=== PATIENT | female | born 1955 | race Caucasian/White ===

== ENCOUNTER 2024-11-02 06:32 | Day surgery (SDC) | payer MEDICARE, OTHER, SELFPAY | END 2024-11-02 11:47 | disposition home or self-care (01) | LOC: GI 06:32 | PROVIDERS: ATTENDING PHYSICIAN Internal Medicine Gastroenterology | DX: K52.9 Noninfective gastroenteritis and colitis, unspecified (principal); K63.3 Ulcer of intestine; K91.850 Pouchitis; Z90.49 Acquired absence of other specified parts of digestive tract | CPT/HCPCS: 44386; 88305 ==

== ENCOUNTER → 2025-02-13 08:54 | Outpatient (REF) | payer MEDICARE, OTHER, SELFPAY | LOC: MRI 3T 08:54 | PROVIDERS: ATTENDING PHYSICIAN Internal Medicine; FAMILY PHYSICIAN Nurse Practitioner Family | DX: K52.9 Noninfective gastroenteritis and colitis, unspecified (principal) | CPT/HCPCS: 72197; 74183; A9575 ==

== ENCOUNTER 2025-04-04 10:49 | Inpatient (IN) | payer MEDICARE, OTHER, SELFPAY ==
[2025-04-04] VITALS (25 sets, daily range): BP systolic 83–121; BP diastolic 43–72; BMI 19.4; BMI 18.8
--- NOTE | 2025-04-04 05:03 | ED.GENMED ---
History of Present Illness
<Minnie Buck PA-C - Last Filed: 04/06/25 20:04>
General
Chief Complaint: Abdominal Pain
Source: patient
Exam Limitations: none
Time Seen by Provider: 04/04/25 04:41
Nursing documentation reviewed up to this point in time: agreed with
History of Present Illness
History of Present Illness:
Note:
CHIEF COMPLAINT(S)
Abdominal pain and nausea.
HISTORY OF PRESENT ILLNESS
The patient is a 69-year-old female with a history of Crohns disease, previously diagnosed as ulcerative colitis, presents today with abdominal pain and back pain. She has a hx of recurrent episodes of partial bowel obstruction. She reports that
symptoms of partial obstruction are managed conservatively at home. However she has required hospitalization reportedly in the past. Symptoms began yesterday around 5:30 PM with nausea, back pain, and abdominal pain. The patient usually
self-manages by inducing emesis; however, she was unable to vomit this time. The abdominal pain is concentrated under the rib cage, radiating to the back, and worsens when lying flat, reaching a pain level of eight or nine on a scale of ten. The
back pain is particularly intense in the middle of the back. She reports that sometimes the pain will radiate lower as well. She also mentioned a recent MRI and is in contact with Dr. Salas at [facility] and Dr. Camejo at [facility] for ongoing
management of her Crohn's disease. 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 Pain is typically worsened with eating, but there are no accompanying fevers, rectal
bleeding, or recent sick contacts.
ADDITIONAL HISTORY OBTAINED FROM SOURCES OTHER THAN THE PATIENT
Per the patient, these symptoms correlate with past bowel obstructions. She communicated with Dr. Salas and Dr. Camejo
CHRONIC MEDICAL CONDITIONS SIGNIFICANTLY AFFECTING CARE
The patient has a history of Crohns disease.
PHYSICAL EXAM
- Nursing notes reviewed and vital signs reviewed.
General: Patient is well appearing and in no acute distress; non-toxic
Skin: Warm and dry, no rashes or lesions
Head: Normocephalic, atraumatic
Eyes: Sclera non-icteric. EOMs intact.
Cardiac: Regular rate and rhythm, no murmurs
Peripheral Vascular: No lower extremity swelling or edema
Pulm: Normal respiratory effort, no wheezes, rales, rhonchi
Abdomen: Diffuse uppper abdominal tenderness to palpation
Neuro: CN II-XII intact, no focal neurologic deficits.
Psychiatric: Appropriate mood and affect.
PROBLEM LIST
Acute Problems:
- Abdominal pain
- Nausea
Chronic Problems:
- Crohns disease
PLAN
The plan includes administering intravenous pain management and anti-emetics. A computed tomography scan will be performed to assess for bowel obstruction and evaluate the gallbladder for potential acute cholecystitis. Laboratory tests will be
obtained. Coordination with the patient�s existing care network for continuity and appropriate management will be ensured.
DIFFERENTIAL DIAGNOSIS
The Differential Diagnosis includes, in no particular order and is not limited to:
1. Small bowel obstruction
2. Acute cholecystitis
3. Gallstones
4. Adhesive disease from prior surgery
5. Pancreatitis
6. Peptic ulcer disease
7. Gastroesophageal reflux disease
8. Biliary dyskinesia
9. Gastritis
10. Kidney stones
CHART REVIEW
reviewed GI office note from 11/02/24, patient seen for update for her previously known UC, she had a MRI performed which showed differential between chronic pouchitis versus prepouch ileitis caused by pouchitis versus evolution of crohn's disease,
she claims her symptoms are baseline for over 10 years and she does not want to take any new medication including abx of steroids versus new biologics at this point
ultrasound 03/11/23 gallbladder is filled with numerous stones with variable wall thickening
MDM/DISPOSITION
CT scan shows mild thickening of the gallbladder wall as well as multiple stones. Clinical picture concerning for acute cholecystitis. Will obtain ultrasound for further evaluation.
7:00 am--case signed out to Liliya MCNEIL pending ultrasound
Past History
<Minnie Buck PA-C - Last Filed: 04/06/25 20:04>
Past History
ED Past Medical History: None
ED Past Surgical History: Other (J-pouch)
Social History
Tobacco: Non-smoker
Alcohol: Occasional
Drug: None
Personal:
Living: with family
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
Family History
Family History: Other (Reviewed and non-contributory)
Review of Systems
<Minnie Buck PA-C - Last Filed: 04/06/25 20:04>
Review of Systems
All Other Systems: ROS reviewed and negative except as documented in HPI and ROS
<Petra Garcia MD - Last Filed: 04/04/25 12:47>
Review of Systems
Constitutional: Reports no symptoms
EENT: Reports no symptoms
Respiratory: Reports no symptoms
Cardiac: Reports no symptoms
ABD/GI: Reports abdominal pain
: Reports no symptoms
Musculoskeletal: Reports no symptoms
Skin: Reports no symptoms
Neurological: Reports no symptoms
Endocrine: Reports no symptoms
Hematologic/Lymphatic: Reports no symptoms
Psychiatric: Reports no symptoms
Phy Exam
<Petra Garcia MD - Last Filed: 04/04/25 12:47>
Physical Exam
Physical Exam:
Patient appears nontoxic. Lungs are clear. Heart sounds regular. Abdomen is soft with mild right upper quadrant tenderness. No rebound or guarding. No pulsatile mass no edema in extremities. Negative Homans' sign. Neuroexam is nonfocal.
Patient is interactive and cooperative
Course
<Minnie Buck PA-C - Last Filed: 04/06/25 20:04>
Orders/Labs/Results
Orders:
Orders
04/04/25 04:40
IV Insert/Care/Rem.- Treatment PRN
04/04/25 04:56
0.9% Sodium Chloride 500 ml [Nss] 500 ml IV BOLUS
HYDROmorphone [Dilaudid] 0.5 mg IV NOW STA
04/04/25 04:57
CT Abd/pelvis W Iv Cont Urgent
Comment:
Reason For Exam: diffuse abdominal pain
04/04/25 04:58
Ondansetron Injectable [Zofran] 4 mg IV NOW STA
04/04/25 05:03
Complete Blood Count/With Diff Urgent
Comprehensive Metabolic Panel Urgent
Lipase Urgent
04/04/25 06:21
US Abdomen Limited Urgent
Comment:
Reason For Exam: RUQ Pain known stones
04/04/25 07:26
Urinalysis Reflex To Culture Urgent
Date Specimen was Collected: 04/04/25
Time Specimen was Collected: 04:40
Urine Microscopic Reflex Cult Urgent
04/04/25 08:47
0.9% Sodium Chloride 1000 ml [Nss] 1,000 ml IV BOLUS
04/04/25 10:18
Admit/Transfer Patient As Directed
Co-Sign Provider:
Level of Care: Inpatient admission
Assign to:: Medical/Surgical
Physician / Group: Hospitalists
Diagnosis: Chron's Disease with Cholelithiasis
Patient Condition: Good
Reason for Hospitalization: Abdominal pain with nausea
Expected length of stay greater than two midnights?: Yes
ELOS- Estimated Length of Stay in days: 4
I certify the patient meets the requirements for IP care: Yes
04/04/25 10:19
PRN Pain Medication Management As Directed
May give lesser potent ordered pain med per pt: Yes
preference::
Protocol:: Medication orders for pain may be administered in a
manner that supports deferring to patient preference
when the pt is:
- Requesting an ordered lesser potent pain medication.
Least to most potent pain medications are defined
as: acetaminophen < NSAID < tramadol < opioids
(morphine, oxycodone, hydromorphone).
- Requesting a lesser dose of the same medication IF
ORDERED.
- Requesting a less intrusive route of administration
if both routes are prescribed by the provider (PO <
IV).
04/04/25 10:23
Code Status As Directed
Resuscitation Status: Full Code
Physician note:: Chato Blank is POA
04/04/25 11:51
0.9% Sodium Chloride 1000 ml [Nss] 1,000 ml IV 90 mls/hr
Acetaminophen [Tylenol] 650 mg PO Q4HPRN PRN
HYDROmorphone [Dilaudid] 0.5 mg IV Q4HPRN PRN
Ondansetron Injectable [Zofran] 4 mg IV Q6HPRN PRN
Polyethylene Glycol Powder [Miralax] 17 grams PO DAILYPRN PRN
04/04/25 11:51
Activity As Directed
Activity Level: As Tolerated
Pneumatic Compression Sleeves As Directed
Type: Knee high
Vital Signs As Directed
Frequency: Per unit guidelines
DX Deep Vein Thrombosis Video Routine
04/05/25 05:16
Complete Blood Count/No Diff IN AM
Comprehensive Metabolic Panel IN AM
Magnesium IN AM
Vitamin B12 IN AM
Abnormal Lab Results
04/04/25 04/04/25
05:03 07:26
Absolute Neuts (auto) 7.4 H 10^3/uL
(1.4-6.5)
Neutrophils % 79.9 H %
(42.2-75.2)
Lymphocytes % 14.5 L %
(20.5-51.1)
Chloride 110 H mmol/L
(98-107)
Carbon Dioxide 21 L mmol/L
(22-30)
Glucose 106 H mg/dl
(70-99)
Total Bilirubin 1.4 H mg/dl
(0.2-1.3)
Ur Occult Blood Reflex 1+ A
(Negative)
04/04/25 05:03
04/04/25 05:03
Vital Signs
Initial and Last Documented VS:
Initial Vital Signs
Temp Pulse Resp BP Pulse Ox
98.4 F 60 20 119/57 100
04/04/25 04:34 04/04/25 04:34 04/04/25 04:34 04/04/25 04:34 04/04/25 04:34
Last Documented Vital Signs
Temp Pulse Resp BP Pulse Ox
98.7 F 71 20 108/56 100
04/05/25 14:50 04/05/25 14:50 04/05/25 14:50 04/05/25 14:50 04/05/25 14:50
<JAQUELIN Singh - Last Filed: 04/04/25 08:56>
Orders/Labs/Results
Orders:
Orders
04/04/25 04:40
IV Insert/Care/Rem.- Treatment PRN
04/04/25 04:56
0.9% Sodium Chloride 500 ml [Nss] 500 ml IV BOLUS
HYDROmorphone [Dilaudid] 0.5 mg IV NOW STA
04/04/25 04:57
CT Abd/pelvis W Iv Cont Urgent
Comment:
Reason For Exam: diffuse abdominal pain
04/04/25 04:58
Ondansetron Injectable [Zofran] 4 mg IV NOW STA
04/04/25 05:03
Complete Blood Count/With Diff Urgent
Comprehensive Metabolic Panel Urgent
Lipase Urgent
04/04/25 06:21
US Abdomen Limited Urgent
Comment:
Reason For Exam: RUQ Pain known stones
04/04/25 07:26
Urinalysis Reflex To Culture Urgent
Date Specimen was Collected: 04/04/25
Time Specimen was Collected: 04:40
Urine Microscopic Reflex Cult Urgent
04/04/25 08:47
0.9% Sodium Chloride 1000 ml [Nss] 1,000 ml IV BOLUS
04/04/25 10:18
Admit/Transfer Patient As Directed
Co-Sign Provider:
Level of Care: Inpatient admission
Assign to:: Medical/Surgical
Physician / Group: Hospitalists
Diagnosis: Chron's Disease with Cholelithiasis
Patient Condition: Good
Reason for Hospitalization: Abdominal pain with nausea
Expected length of stay greater than two midnights?: Yes
ELOS- Estimated Length of Stay in days: 4
I certify the patient meets the requirements for IP care: Yes
04/04/25 10:19
PRN Pain Medication Management As Directed
May give lesser potent ordered pain med per pt: Yes
preference::
Protocol:: Medication orders for pain may be administered in a
manner that supports deferring to patient preference
when the pt is:
- Requesting an ordered lesser potent pain medication.
Least to most potent pain medications are defined
as: acetaminophen < NSAID < tramadol < opioids
(morphine, oxycodone, hydromorphone).
- Requesting a lesser dose of the same medication IF
ORDERED.
- Requesting a less intrusive route of administration
if both routes are prescribed by the provider (PO <
IV).
04/04/25 10:23
Code Status As Directed
Resuscitation Status: Full Code
Physician note:: Chato Blank is POA
04/04/25 11:51
0.9% Sodium Chloride 1000 ml [Nss] 1,000 ml IV 90 mls/hr
Acetaminophen [Tylenol] 650 mg PO Q4HPRN PRN
HYDROmorphone [Dilaudid] 0.5 mg IV Q4HPRN PRN
Ondansetron Injectable [Zofran] 4 mg IV Q6HPRN PRN
Polyethylene Glycol Powder [Miralax] 17 grams PO DAILYPRN PRN
04/04/25 11:51
Activity As Directed
Activity Level: As Tolerated
Pneumatic Compression Sleeves As Directed
Type: Knee high
Vital Signs As Directed
Frequency: Per unit guidelines
DX Deep Vein Thrombosis Video Routine
04/05/25 05:16
Complete Blood Count/No Diff IN AM
Comprehensive Metabolic Panel IN AM
Magnesium IN AM
Vitamin B12 IN AM
Abnormal Lab Results
04/04/25 04/04/25
05:03 07:26
Absolute Neuts (auto) 7.4 H 10^3/uL
(1.4-6.5)
Neutrophils % 79.9 H %
(42.2-75.2)
Lymphocytes % 14.5 L %
(20.5-51.1)
Chloride 110 H mmol/L
(98-107)
Carbon Dioxide 21 L mmol/L
(22-30)
Glucose 106 H mg/dl
(70-99)
Total Bilirubin 1.4 H mg/dl
(0.2-1.3)
Ur Occult Blood Reflex 1+ A
(Negative)
04/04/25 05:03
04/04/25 05:03
Vital Signs
Initial and Last Documented VS:
Initial Vital Signs
Temp Pulse Resp BP Pulse Ox
98.4 F 60 20 119/57 100
04/04/25 04:34 04/04/25 04:34 04/04/25 04:34 04/04/25 04:34 04/04/25 04:34
Last Documented Vital Signs
Temp Pulse Resp BP Pulse Ox
98.7 F 71 20 108/56 100
04/05/25 14:50 04/05/25 14:50 04/05/25 14:50 04/05/25 14:50 04/05/25 14:50
<Petra Garcia MD - Last Filed: 04/04/25 12:47>
Orders/Labs/Results
Orders:
Orders
04/04/25 04:40
IV Insert/Care/Rem.- Treatment PRN
04/04/25 04:56
0.9% Sodium Chloride 500 ml [Nss] 500 ml IV BOLUS
HYDROmorphone [Dilaudid] 0.5 mg IV NOW STA
04/04/25 04:57
CT Abd/pelvis W Iv Cont Urgent
Comment:
Reason For Exam: diffuse abdominal pain
04/04/25 04:58
Ondansetron Injectable [Zofran] 4 mg IV NOW STA
04/04/25 05:03
Complete Blood Count/With Diff Urgent
Comprehensive Metabolic Panel Urgent
Lipase Urgent
04/04/25 06:21
US Abdomen Limited Urgent
Comment:
Reason For Exam: RUQ Pain known stones
04/04/25 07:26
Urinalysis Reflex To Culture Urgent
Date Specimen was Collected: 04/04/25
Time Specimen was Collected: 04:40
Urine Microscopic Reflex Cult Urgent
04/04/25 08:47
0.9% Sodium Chloride 1000 ml [Nss] 1,000 ml IV BOLUS
04/04/25 10:18
Admit/Transfer Patient As Directed
Co-Sign Provider:
Level of Care: Inpatient admission
Assign to:: Medical/Surgical
Physician / Group: Hospitalists
Diagnosis: Chron's Disease with Cholelithiasis
Patient Condition: Good
Reason for Hospitalization: Abdominal pain with nausea
Expected length of stay greater than two midnights?: Yes
ELOS- Estimated Length of Stay in days: 4
I certify the patient meets the requirements for IP care: Yes
04/04/25 10:19
PRN Pain Medication Management As Directed
May give lesser potent ordered pain med per pt: Yes
preference::
Protocol:: Medication orders for pain may be administered in a
manner that supports deferring to patient preference
when the pt is:
- Requesting an ordered lesser potent pain medication.
Least to most potent pain medications are defined
as: acetaminophen < NSAID < tramadol < opioids
(morphine, oxycodone, hydromorphone).
- Requesting a lesser dose of the same medication IF
ORDERED.
- Requesting a less intrusive route of administration
if both routes are prescribed by the provider (PO <
IV).
04/04/25 10:23
Code Status As Directed
Resuscitation Status: Full Code
Physician note:: Chato Blank is POA
04/04/25 11:51
0.9% Sodium Chloride 1000 ml [Nss] 1,000 ml IV 90 mls/hr
Acetaminophen [Tylenol] 650 mg PO Q4HPRN PRN
HYDROmorphone [Dilaudid] 0.5 mg IV Q4HPRN PRN
Ondansetron Injectable [Zofran] 4 mg IV Q6HPRN PRN
Polyethylene Glycol Powder [Miralax] 17 grams PO DAILYPRN PRN
04/04/25 11:51
Activity As Directed
Activity Level: As Tolerated
Pneumatic Compression Sleeves As Directed
Type: Knee high
Vital Signs As Directed
Frequency: Per unit guidelines
DX Deep Vein Thrombosis Video Routine
04/05/25 05:16
Complete Blood Count/No Diff IN AM
Comprehensive Metabolic Panel IN AM
Magnesium IN AM
Vitamin B12 IN AM
Abnormal Lab Results
04/04/25 04/04/25
05:03 07:26
Absolute Neuts (auto) 7.4 H 10^3/uL
(1.4-6.5)
Neutrophils % 79.9 H %
(42.2-75.2)
Lymphocytes % 14.5 L %
(20.5-51.1)
Chloride 110 H mmol/L
(98-107)
Carbon Dioxide 21 L mmol/L
(22-30)
Glucose 106 H mg/dl
(70-99)
Total Bilirubin 1.4 H mg/dl
(0.2-1.3)
Ur Occult Blood Reflex 1+ A
(Negative)
04/04/25 05:03
04/04/25 05:03
Vital Signs
Initial and Last Documented VS:
Initial Vital Signs
Temp Pulse Resp BP Pulse Ox
98.4 F 60 20 119/57 100
04/04/25 04:34 04/04/25 04:34 04/04/25 04:34 04/04/25 04:34 04/04/25 04:34
Last Documented Vital Signs
Temp Pulse Resp BP Pulse Ox
98.7 F 71 20 108/56 100
04/05/25 14:50 04/05/25 14:50 04/05/25 14:50 04/05/25 14:50 04/05/25 14:50
<Minnie Buck PA-C - Last Filed: 04/06/25 20:04>
*Pulse Oximetry
SaO2: 100
Oxygen Mode of Delivery: Room air
<JAQUELIN Singh - Last Filed: 04/04/25 08:56>
*Radiology
Radiology exam reviewed: radiology read reviewed
*Pulse Oximetry
Patient hypoxic: no
*Critical Care Note
Total Time (30-74mins, 75-104mins- exclusive of procedures): Not Applicable
<JAQUELIN Singh - Last Filed: 04/04/25 08:56>
Patient Management
Discussion with other providers: Screedman/Laborer
Escalation/DeEscalation of care consider admission/obs:
DR Buck surgery made aware
<JAQUELIN Singh - Last Filed: 04/04/25 08:56>
Update Note
Update Note:
REceived sign out. US shows slightly prominent size gallbladder containing stones with mild wall thickening of clinical concern for acute cholecystitis recommend nuclear scan.
Patient feeling more comfortable presently still has some discomfort in the right upper abdomen wrapping around to the back However with persistent pain and imaging findings would recommend admission for biliary colic. with findings of gallstones
w/ pain will notify surgeon and admitting hospitalist
ED Attending Note
<Minnie Buck PA-C - Last Filed: 04/06/25 20:04>
-
Portions of this chart may have been created with voice recognition software.� Occasional wrong word or��sound alike� substitutions may have occurred due to the inherent limitations of voice recognition software.
<Petra Garcia MD - Last Filed: 04/04/25 12:47>
ED Attending Note
Patient seen and examined by attending physician: Yes
I performed the substantive portion of visit, reviewed & personally made and approve the management plan that is documented in note by myself or YANN.: Yes
ED Attending Note:
Patient appears nontoxic and is conversational and smiling. She does have right upper quadrant tenderness on exam. I did personally review the ultrasound which shows shadowing gallstones, a small amount of pericholecystic fluid and edema of
gallbladder wall. Abdomen is nondistended with no sign of peritonitis
Discharge Plan
Departure
Patient Disposition: Admit
Date of Disposition: 04/04/25
Time of Disposition: 08:53
Admit to: Med/Surg
Admit to doctor: hospitalist
Presentation/result/management discussed w/ accepting MD/DO: Hospitalist
Patient with high blood pressure during this ER visit?: No
Condition: Fair
Covid-19: Not Applicable
Discharge Problem:
Gallstones, Abdominal pain
Interventions
Interventions:
*General Assessment Last Done: 04/04/25 04:34
*Neglect/Abuse Screening Last Done: 04/04/25 04:34
*ED- Fall Risk Assessment Last Done: 04/04/25 04:34
*Nursing Disposition Last Done: 04/04/25 12:02
CC-Wrdulj-Gfoweztptx Assessment Last Done: 04/04/25 07:28
Discharge Date and Time
Discharge Date/Time: 04/04/25 12:03
[2025-04-04] MEDS: ZOFRAN 4 MG IV ×2 (05:09→18:02)
[2025-04-04] MEDS: NSS 500 IV (05:11)
[2025-04-04] MEDS: DILAUDID 0.5 MG IV ×2 (05:11→18:13)
[2025-04-04 05:29] LABS: Hematocrit 41.7 % (37.0-47.0); Hemoglobin 13.9 g/dL (12.0-16.0); Mean Corp Hgb Conc. 33.3 g/dL (33.0-37.0); Mean Corpuscular Volume 91.2 fL (81.0-99.0); Nucleated Red Blood Cells % 0 %; Platelet Count 346 10^3/uL (130-400); Red Cell Dist. Width 12.8 % (11.5-14.5)
[2025-04-04 05:58] LABS: ALT (SGPT) 16 U/L (0-35); AST (SGOT) 20 U/L (14-36); Albumin 4.0 g/dl (3.5-5.0); Alkaline Phosphatase 73 U/L (38-126); Blood Urea Nitrogen 15 mg/dl (7-17); Calcium 9.3 mg/dl (8.4-10.2); Carbon Dioxide 21 mmol/L (22-30); Chloride 110 mmol/L (98-107); Estimated Creatinine Clearance 50 ml/min; Glucose 106 mg/dl (70-99); Lipase 74 U/L (23-300); Potassium 4.3 mmol/L (3.5-5.1); Sodium 137 mmol/L (135-145); Total Protein 7.0 g/dl (6.3-8.2); eGFR > 60.00
[2025-04-04 07:39] LABS: Urine Character Clear (Clear)
[2025-04-04 08:05] LABS: Urine Red Blood Cell 0-2 /HPF (0-2); Urine White Cell 0-2 /HPF (0-5)
[2025-04-04] MEDS: NSS 1000 IV ×2 (08:51→13:32)
--- NOTE | 2025-04-04 10:54 | CM ---
CM reviewed chart and met with pt bedside in ED. Lives alone, one story home, [address].
Independent ADLs, Personal care, driving and ambulation at baseline. No DME
Hx VN many years ago, no hx SNF
PCP: Monie Cordoba
Pharmacy: [facility] [place], [place]
CM will continue to follow for discharge planning.
--- NOTE | 2025-04-04 11:11 | W.PN.GS2 ---
Today's Communication / Plan
-
Recommendation for laparoscopic cholecystectomy
NPO
IV Fluid
Pain medication PRN
Nausea medication PRN
Assessment / Plan
-
RUQ pain along with stones in the gallbladder suggest acute cholecystitis
Patient is recommended for laparoscopic cholecystectomy
Time Spent
Total Time Spent with Patient (in minutes): 20
Subjective Data
-
Date of Service: April 04, 2025
69 y/o F presenting today with a nausea, back pain and abdominal pain that started 5:30 pm last night. Patient has a PMH of Crohns previously diagnosed as UC with a colectomy and J pouch. She also has a hx of recurrent episodes of partial bowel
obstruction. Patients condition is usually managed conservatively at home. Patient states that she usually self manages by inducing self emesis. She stated that she had salmon and a [place] sweet potato for dinner yesterday and then started feeling
pain under her right ribcage that radiated towards the middle of her back. She states admits to nausea, burping episodes and watery BM since arrival. She denies any fever, flatus and states that she tried to induce self emesis but she couldn't bring
anything up. She denies any blood or bile in her usual vomiting episodes. She has discomfort laying on her side and states that the pain didn't go away which brought her into the ER. She states the she is not in any pain during consult because of
the pain medication.
Objective Data
-
Vital Signs
Temp Pulse Resp BP Pulse Ox
98.4 F 52 16 111/61 100
04/04/25 04:34 04/04/25 10:27 04/04/25 10:27 04/04/25 10:00 04/04/25 10:15
Lab Results
04/04/25 05:03
04/04/25 05:03
Calcium 9.3 mg/dl (8.4-10.2) 04/04/25 05:03
Total Bilirubin 1.4 mg/dl (0.2-1.3) H 04/04/25 05:03
AST 20 U/L (14-36) 04/04/25 05:03
ALT 16 U/L (0-35) 04/04/25 05:03
Alkaline Phosphatase 73 U/L (38-126) 04/04/25 05:03
Total Protein 7.0 g/dl (6.3-8.2) 04/04/25 05:03
Albumin 4.0 g/dl (3.5-5.0) 04/04/25 05:03
AFVSS
Labs: Increase in neutrophil count and low lymphocytes indicates an inflammatory process.
CT abdomen/pelvis with IV contrast: Mildly distended gallbladder containing stones. Mild wall thickening (0.4 cm). No biliary tract dilatation.
U/S: Slightly prominent size gallbladder containing stones with mild wall thickening.
Physical Exam
-
General: NAD
AAAOx3
Chest: No labored breathing
Abdomen: Soft, tender, diffuse right upper quadrant pain on palpation. Mild distention noted.
Patient has a lam catheter: No
Patient has a central line: No
--- NOTE | 2025-04-04 11:17 | HPS.HSE ---
Addendum entered and electronically signed by Nina Rodgers MD 04/04/25 14:39:
I personally performed a history and physical exam of the patient and discussed management with the resident. I reviewed the resident's note and agree with the documented findings and plan of care HPI/CC.
GENERAL: well developed, well nourished, female in no apparent distress
HEENT: NC/AT--no O2 requirements
HEART: regular rate and rhythm, +S1, +S2
LUNGS : clear to auscultation bilaterally
ABDOM: soft, tender RUQ with palpation, nondistended, + bowel sounds
EXT: no cyanosis, clubbing, or edema
NEUROLOGIC: grossly intact
sepsis (fluid responsive) due to Acute cholecystitis--symptoms consistent--apprec surgery--needs lap sean--NPO/IVF/pain control
Hypotension secondary to sepsis--fluid respsonsive--cont NPO/IVF
Crohn's disease-- Monitoring/stable
DVT proph
code status -- FULL CODE
Original Note:
Family Physician
-
Family Physician: JAQUELIN Wells
Chief Complaint
-
Abdominal pain
History of Present Illness
Patient is a 69-year-old woman with a history of Crohn's disease that was previously misdiagnosed as ulcerative colitis that presented to the emergency department with abdominal pain and back pain. She has a history of recurrent episodes of partial
bowel obstruction. She usually manages symptoms of her partial bowel obstruction at home conservatively. Her most recent symptoms began yesterday around 5:30 PM in the afternoon with nausea, back pain, and abdominal pain. She usually self manages
by inducing vomiting but she was unable to vomit this most recent time. She needs to induce vomiting sometimes twice a week, other times she may not have any issues for a whole week or so. Following the vomiting, she states that her gut usually
starts moving and symptoms resolve. She stated that her abdominal pain was concentrated under the right rib cage, radiating to the back and it is worse when she is lying flat. Her pain level reached an 8-9 out of 10. Her back pain was
particularly intense in the middle of her back and she reported that sometimes the pain radiated lower down her back as well. She also mentioned that she had a recent MRI and is being followed by Dr. Salas at [facility] and Dr. Camejo at [facility] for
ongoing management of chron's disease. 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 Her abdominal pain is typically worsened with eating but there are no accompanying fevers or
rectal bleeding. CT scan of the abdomen was conducted down in the emergency department showing mildly distended gallbladder containing stones with some mild wall thickening. There was a large volume fecal like material/stool filling and mildly
distending the distal small bowel and J-pouch and there was possibility of accompanying wall thickening/active inflammation. The patient was admitted to [facility] for cholecystitis with sepsis.
Medical History
Past Medical History
Past Medical History: Reports Other (Crohn's disease)
Additional Past Medical History:
Crohn's disease
Past Surgical History: Reports Bowel Resection
Additional Past Surgical History:
Total colectomy
Social History
Tobacco: Non-smoker
Alcohol: None
Drug: None
Personal:
Living: With Family
Employment: Other (Works part-time)
Family History
Family History: Other (History of diverticulitis in mother and father and uncle. Sister has kidney stones)
Allergies / Home Medications
Allergies reflects when Allergies were last updated in [facility].
Home Medications with original date entered in [facility]
Allergy/Medication List:
Allergies
Allergy/AdvReac Type Severity Reaction Status Date / Time
aspirin (Aspirin) Allergy Unknown Verified 04/04/25 04:34
mesalamine Allergy 'gets Verified 04/04/25 04:34
isabella's-monika's
syndrome'
Sulfa (Sulfonamide Allergy Unknown Verified 04/04/25 04:34
Antibiotics)
sulfasalazine Allergy isabella-monika's Verified 04/04/25 04:34
sydrome'
azithromycin (From Zithromax) AdvReac Unknown Verified 04/04/25 04:34
Home Medications
No Meds [No Current Medications] 04/04/25
Review of Systems
-
A 12 point ROS was completed and negative except as noted: Yes
Abdomen/GI: Reports See HPI
Physical Exam
Vital Signs
Vital Signs
Temp Pulse Resp BP Pulse Ox
98.4 F 52 16 111/61 100
04/04/25 04:34 04/04/25 10:27 04/04/25 10:27 04/04/25 10:00 04/04/25 10:15
Physical Exam
General: Well Developed, Well Nourished, No Apparent Distress and Comfortable
HEENT: NormoCephalic, Anicteric, Moist mucous membranes, Atraumatic and Good Dentition
Respiratory: Clear and Non Labored Respirations; No Wheezes, Rales, Rhonchi or Crackles
Cardiac: S1/S2, Regular Rhythm and Bradycardia
Breast: Deferred by me
GI: Soft, Non Distended, Normal Bowel Sounds and Tender (Tender on deep palpation of the right upper quadrant.)
Rectal: Deferred by Provider
Genito-urinary: Deferred by me
Musculoskeletal: No Clubbing, No Cyanosis and No Edema
Skin: Warm and Dry; No Rash, Jaundice, Ulcers or Lesions
Neuro: Awake, Alert, Oriented, AO x 3, No Motor Deficits and Nonfocal/grossly intact
Hematologic/Lymphatic: No Lymphadenopathy
Psych: Calm
Laboratory Results
-
04/04/25 05:03
04/04/25 05:03
Laboratory Results
Total Bilirubin 1.4 mg/dl (0.2-1.3) H 04/04/25 05:03
AST 20 U/L (14-36) 04/04/25 05:03
ALT 16 U/L (0-35) 04/04/25 05:03
Alkaline Phosphatase 73 U/L (38-126) 04/04/25 05:03
Lipase 74 U/L (23-300) 04/04/25 05:03
Impression/Plan
-
Impression and Plan:
- Acute cholecystitis: Unresolved
CT scan of the abdomen and pelvis along with ultrasound indicate cholecystitis in the setting of correlating physical exam findings
Pain control with Dilaudid
Surgery consulted for cholecystitis
Patient kept n.p.o. in anticipation of possible cholecystectomy if indicated
Zofran for nausea
Consideration of ordering nuclear hepatobiliary scan for further evaluation
- Sepsis responsive to fluid resuscitation: Improving
Patient was hypotensive with a systolic in the upper 80s in the emergency department
Patient was bradycardic with a heart rate of 55 in the emergency department
Patient had a respiratory rate of 20 in the emergency department
Patient received sepsis dose IV fluid boluses and the patient was responsive
Patient has cholecystitis -cefazolin prior to procedure
Continue IV fluid support
- Hypotension secondary to sepsis: Stable
Patient was hypotensive with a systolic in the upper 80s in the emergency department
Patient received sepsis dose IV fluid boluses and the patient was responsive
- Chron's disease: Monitoring/stable
Consider GI consult
Imaging:
- Abdominal CT conducted on 04/04/2025:
Mildly distended gallbladder containing stones, cannot exclude some mild wall thickening. No findings to suggest biliary tract dilatation. Consider Abdominal Ultrasound for more complete evaluation as acute cholecystitis cannot be excluded.
Prior colectomy with J-pouch formation in this patient with history of Crohn's disease, evaluation overall markedly limited without oral contrast. Large volume fecal-like material/stool filling and mildly distending the distal small bowel and
J-pouch, cannot exclude some accompanying wall thickening/active inflammation. No small bowel obstruction or free air.
- Abdominal ultrasound conducted on 04/04/2025:
Slightly prominent size gallbladder containing stones with mild wall thickening. Negative sonographic Busch's sign. If there is a clinical concern for acute cholecystitis, consider Nuclear Hepatobiliary scan.
No findings to suggest biliary tract dilatation.
--- NOTE | 2025-04-04 12:58 | CON.GS ---
Consultation
-
Date/Time Consultation Performed: 04/04/2025 12:38 PM
Reason for Consultation: Abdominal pain/cholecystitis
Medical History
-
Chief Complaint: Right upper quadrant/epigastric abdominal pain
History of Present Illness:
Patient is a 69-year-old female with a history of ulcerative colitis having undergone total abdominal colectomy with J-pouch reconstruction in the late . Temporary diverting loop ileostomy which was promptly reversed. She has not required any
surgical intervention since and continues with routine surveillance pouchoscopy. No significant additional medical history.
Patient was in her usual baseline state of health until yesterday evening when she acutely developed epigastric abdominal pain rating to the back. She has had numerous episodes like this particularly over the last year that she had been attributing
to GERD. This was her worst episode yet. She tried to induce vomiting without relief prompting emergency department evaluation.
Past Medical History
Past Medical History: Other (History of ulcerative colitis)
Past Surgical History: Other (Total abdominal colectomy with J-pouch reconstruction)
Social History
Tobacco: Non-Smoker
Alcohol: None
Personal:
Living: With Family
Family History
Family History: Reviewed & Not Pertinent
Allergies / Home Medications
Allergy/AdvReac Type Severity Reaction Status Date / Time
aspirin (Aspirin) Allergy Unknown Verified 04/04/25 04:34
mesalamine Allergy 'gets Verified 04/04/25 04:34
isabella's-monika's
syndrome'
Sulfa (Sulfonamide Allergy Unknown Verified 04/04/25 04:34
Antibiotics)
sulfasalazine Allergy isabella-monika's Verified 04/04/25 04:34
sydrome'
azithromycin (From Zithromax) AdvReac Unknown Verified 04/04/25 04:34
�Medication �Instructions �Recorded �Confirmed �Type
No Meds [No Current Medications] 04/04/25 04/04/25 History
Review of Systems
-
History Source: Patient
All other systems: Negative unless noted
A 10 point review of systems was completed, and was negative except as per HPI.
Physical Exam
Vital Signs
Temp Pulse Resp BP Pulse Ox
98.1 F 51 20 108/68 97
04/04/25 11:56 04/04/25 11:56 04/04/25 11:56 04/04/25 11:56 04/04/25 11:56
04/03/25 04/04/25 04/05/25
06:59 06:59 06:59
Actual Weight 48 kg 46.675 kg
Body Mass Index (BMI) 18.8
Lab Results
04/04/25 05:03
04/04/25 05:03
WBC 9.3 10^3/uL (4.8-10.8) 04/04/25 05:03
Hgb 13.9 g/dL (12.0-16.0) 04/04/25 05:03
Hct 41.7 % (37.0-47.0) 04/04/25 05:03
Plt Count 346 10^3/uL (130-400) 04/04/25 05:03
Abs Immat Gran (auto) 0.0 10^3/uL (0-0.05) 04/04/25 05:03
Neutrophils % 79.9 % (42.2-75.2) H 04/04/25 05:03
Physical Exam
General: Well Developed, Well Nourished, No Apparent Distress and Comfortable
HEENT: Normocephalic, Anicteric and Moist Mucous Membranes
Respiratory: Non Labored Respirations
Cardiac: Regular Rhythm
GI: Soft, Non Distended, Tender (Tenderness to palpation in the right upper quadrant with localized voluntary guarding) and Other (Midline laparotomy surgical scar in right lower quadrant old ileostomy site scar)
Skin: Warm
Neuro: AO x 3
Psych: Calm
Data Reviewed
-
Radiology: Image Personally Visualized and interpreted and Discussed with Patient
CT Scan: Image Personally Visualized and interpreted and Discussed with Patient
Labs: Labs Reviewed by me and Discussed with Patient
Assessment / Plan
-
Assessment: 69-year-old female with probable acute calculus cholecystitis.
CT imaging and ultrasound imaging reviewed. Large gallstone occupying large component of gallbladder lumen. Secondary gallbladder distention and localized inflammatory changes. No additional notable acute CT imaging findings.
In the setting of intractable abdominal pain and persistent tenderness we discussed indications for cholecystectomy for definitive management. Patient in agreement to proceed with surgery. We specifically discussed the potential for increased
complexity of surgery due to her previous history of having undergone a total abdominal colectomy. Laparoscopic cholecystectomy the cholangiogram was reviewed in detail the patient given the operative technique, alternative treatment options,
benefits and potential risk such as but not limited to bleeding, infectious and related complications, iatrogenic injury to surrounding structures, bile duct injury, bile leak. We discussed the typical postoperative recovery pending operative
findings. Any of the patient's concerns or questions were fully addressed and informed consent was obtained.
Plan: Patient has been added onto the OR schedule today for cholecystectomy
Cefotetan 2 g IV will be ordered on-call to the OR
--- NOTE | 2025-04-04 14:53 | CM ---
Patient seen at bedside on . Patient plan is to go home with supports from family when discharged. Patient for surgery today. CM will continue to follow for discharge planning needs.
Plan;home with no needs anticipated.
--- NOTE | 2025-04-04 15:53 | W.SUR.PREOP ---
Pre-Operative Surgical Note
-
I have examined this patient prior to the performance of the scheduled procedure.
The patient's condition is unchanged from the time of the current History and
Physical and the patient is able to undergo the scheduled procedure.
--- NOTE | 2025-04-04 17:34 | W.IMMPOSTOP ---
Addendum entered and electronically signed by Roland Buck MD 04/11/25 18:59:
#[id number]
Original Note:
Surgical Immed Post Op Note
-
Primary Surgeon: Roland Buck MD
Assisting Surgeon: Spring ODELL
Pre-op Diagnosis: Acute Calculous Cholecystitis
Post-op Diagnosis: Acute Calculous Cholecystitis
Procedure Performed: Laparoscopic Cholecystectomy
Anesthesia Type: GETA + 0.25% Marcaine
Specimen / Cultures: Gallbladder
Estimated Blood Loss: 20 mL
Complications: None immediate
Operative Findings: Tensely distended gallbladder with large stone impacted in the body. Infundibular region soft. Cystic duct isolated and controlled with clips, cystic artery and posterior cystic artery branch also controlled with clips.
Gallbladder removed off liver bed intact and extracted at epigastric port site which had to be enlarged to accommodate the approximately 2 inch diameter gallstone.
Patient's son updated postoperatively with phone call
[2025-04-04] MEDS: DILAUDID 0.25 MG IV (18:51)
[2025-04-05 01:04] VITALS: BP 92/47
[2025-04-05] MEDS: NSS 1000 IV (05:07)
[2025-04-05 05:58] LABS: Hematocrit 38.7 % (37.0-47.0); Hemoglobin 12.7 g/dL (12.0-16.0); Mean Corp Hgb Conc. 32.8 g/dL (33.0-37.0); Mean Corpuscular Volume 91.9 fL (81.0-99.0); Platelet Count 312 10^3/uL (130-400); Red Cell Dist. Width 13.0 % (11.5-14.5)
[2025-04-05 06:15] LABS: ALT (SGPT) 28 U/L (0-35); AST (SGOT) 38 U/L (14-36); Albumin 3.2 g/dl (3.5-5.0); Alkaline Phosphatase 51 U/L (38-126); Blood Urea Nitrogen 6 mg/dl (7-17); Calcium 7.4 mg/dl (8.4-10.2); Carbon Dioxide 23 mmol/L (22-30); Chloride 108 mmol/L (98-107); Estimated Creatinine Clearance 56 ml/min; Glucose 123 mg/dl (70-99); Magnesium 1.9 mg/dl (1.6-2.3); Potassium 3.9 mmol/L (3.5-5.1); Sodium 136 mmol/L (135-145); Total Protein 5.8 g/dl (6.3-8.2); eGFR > 60.00
[2025-04-05 07:01] LABS: Vitamin B12 194 pg/ml (239-931)
[2025-04-05 07:07] VITALS: BP 93/43
--- NOTE | 2025-04-05 07:30 | W.PN.HOSP.TC ---
Addendum entered and electronically signed by Nina Rodgers MD 04/05/25 13:37:
I saw and evaluated the patient independently. I reviewed the resident�s note and agree with findings and plan as documented by Dr. Mccoy.
GENERAL: well developed, well nourished, female in no apparent distress
HEENT: NC/AT--no O2 requirements
HEART: regular rate and rhythm, +S1, +S2
LUNGS : clear to auscultation bilaterally
ABDOM: soft,nontender, nondistended, + bowel sounds
EXT: no cyanosis, clubbing, or edema
NEUROLOGIC: grossly intact
sepsis (fluid responsive) due to Acute cholecystitis--symptoms consistent--apprec surgery--s/p lap sean--tolerating diet--OK for d/c
Hypotension secondary to sepsis--fluid responsive--tolerating diet
Crohn's disease-- Monitoring/stable
DVT proph
code status -- FULL CODE
Original Note:
Today's Communication/Plan
-
Patient currently on a low-fat diet if she tolerates her diet we we will move forward with discharge planning
Pain control switched to acetaminophen 650 mg, Toradol 10 mg IV every 4 hours as needed, and oral tramadol 50 mg p.o. every 6 hours as needed
Assessment / Plan
Assessment / Plan
Impression and Plan:
- Acute cholecystitis: Resolved
CT scan of the abdomen and pelvis along with ultrasound indicate cholecystitis in the setting of correlating physical exam findings
Pain control with Dilaudid
Surgery consulted for cholecystitis
Zofran for nausea
Patient tolerated her cholecystectomy
Pain control switched to acetaminophen 650 mg, Toradol 10 mg IV every 4 hours as needed, and oral tramadol 50 mg p.o. every 6 hours as needed
- Sepsis responsive to fluid resuscitation: Resolved
Patient was hypotensive with a systolic in the upper 80s in the emergency department
Patient was bradycardic with a heart rate of 55 in the emergency department
Patient had a respiratory rate of 20 in the emergency department
Patient received sepsis dose IV fluid boluses and the patient was responsive
Patient has cholecystitis -cefazolin prior to procedure
Continue IV fluid support
- Hypotension secondary to sepsis: Stable
Patient was hypotensive with a systolic in the upper 80s in the emergency department
Patient received sepsis dose IV fluid boluses and the patient was responsive
- Chron's disease: Monitoring/stable
Stable and monitoring
Imaging:
- Abdominal CT conducted on 04/04/2025:
Mildly distended gallbladder containing stones, cannot exclude some mild wall thickening. No findings to suggest biliary tract dilatation. Consider Abdominal Ultrasound for more complete evaluation as acute cholecystitis cannot be excluded.
Prior colectomy with J-pouch formation in this patient with history of Crohn's disease, evaluation overall markedly limited without oral contrast. Large volume fecal-like material/stool filling and mildly distending the distal small bowel and
J-pouch, cannot exclude some accompanying wall thickening/active inflammation. No small bowel obstruction or free air.- Abdominal ultrasound conducted on 04/04/2025:
Slightly prominent size gallbladder containing stones with mild wall thickening. Negative sonographic Busch's sign. If there is a clinical concern for acute cholecystitis, consider Nuclear Hepatobiliary scan.
No findings to suggest biliary tract dilatation.
Anticipated Discharge: Within 24 hours
Subjective/Interval History
-
Date of Service: April 05, 2025
Met with patient at the bedside. Overall, she believes that she is doing much better today and wonders when she would be ready for discharge. She stated she had sharp right-sided neck pain after walking the hallway in the evening. She went to
sleep and woke up and the pain was gone. She has dull abdominal pain and she states that the acetaminophen that she is getting is not adequately managing her pain and she worries about taking Dilaudid. She asks for a less strong pain medication as
she worries about Dilaudid postoperatively.
Objective Data
-
Labs:
Laboratory Results
04/05/25
05:16
WBC 8.6
Hgb 12.7
Hct 38.7
Plt Count 312
Sodium 136
Potassium 3.9
Chloride 108 H
Carbon Dioxide 23
BUN 6 L
Creatinine 0.7
Glucose 123 H
Calcium 7.4 L D
Total Bilirubin 1.5 H
AST 38 H
ALT 28
Alkaline Phosphatase 51
Vital Signs:
Vital Signs
Temp Pulse Resp BP Pulse Ox
98.2 F 64 20 92/47 96
04/05/25 01:04 04/05/25 01:04 04/05/25 01:04 04/05/25 01:04 04/05/25 01:04
I&O
04/04/25 04/05/25 04/06/25
06:59 06:59 06:59
Intake Total 1939
Balance 1939
Review of Systems
-
History Source: Patient
Constitutional: Reports No Symptoms
EENT: Reports No Symptoms Reported
Respiratory: Reports No Symptoms
Cardiac: Reports No Symptoms
Abdomen/GI: Reports Abdominal Pain
Breast: Reports No Symptoms
Genitourinary: Reports No Symptoms
Musculoskeletal: Reports Muscle Pain (Right-sided neck muscle pain that has resolved this morning)
Skin: Reports No Symptoms
Neuro: Reports No Symptoms
Endocrine: Reports No Symptoms
Hematologic / Lymphatic: Reports No Symptoms
Physical Exam
-
General: Well Developed, Well Nourished, No Apparent Distress and Comfortable
HEENT: Normocephalic, Atraumatic and Moist Mucous Membranes
Respiratory: Clear to Auscultation and Non Labored Respirations; Negative Wheezes, Rales, Rhonchi or Crackles
Cardiac: Regular Rhythm and S1/S2; Negative Murmur, Rub or JVD
Breast: Deferred by me
GI: Soft, Nontender, Nondistended and Normal Bowel Sounds
Rectal: Deferred by Provider
Musculoskeletal: No Clubbing, No Cyanosis and No Edema
Skin: Warm, Dry and Normal Turgor; Negative Rash, Ulcers or Lesions
Neuro: Awake, Alert, Oriented, AO x 3 and No Motor Deficits
Hematologic / Lymphatic: No Lymphadenopathy
Psych: Calm
--- NOTE | 2025-04-05 08:00 | W.PN.GS2 ---
Today's Communication / Plan
-
-- Pain control: Tylenol, Toradol (confirmed with patient no allergy and takes Motrin at home), Tramadol
-- DVT: Lovenox
-- Dispo pending pain and dietary tolerance today
-- Repeat CMP as outpatient if DC today versus tomorrow
Assessment / Plan
-
Patient is a 69 yo F p/w acute on chronic cholecystitis
POD#1 s/p laparoscopic cholecystectomy
AVSS, BP soft
Labs with normal WBC, stable Hb, normal kidney function, continued mild elevation in bilirubin (1.5)
Recovering well overall. Monitor for progression/control of pain and dietary tolerance throughout the day. If improved this afternoon OK for DC. Would repeat CMP as outpatient (next week) if DC today otherwise repeat tomorrow. No need for
further abx from surgical standpoint.
-- LFD
-- DC IVF
-- Pain control: Tylenol, Toradol (confirmed with patient no allergy and takes Motrin at home), Tramadol
-- DVT: Lovenox
-- Dispo pending pain and dietary tolerance today
-- Repeat CMP as outpatient if DC today versus tomorrow
Subjective Data
-
Date of Service: April 05, 2025
Reports abdominal soreness, mostly with movement or positional. No nausea or emesis. No fevers.
Objective Data
-
Intake and Output
04/04/25 04/05/25 04/06/25
06:59 06:59 06:59
Intake Total 1939
Balance 1939
Intake:
Oral fluids 1440 / 1440
IV fluids (Total) 500 / 500
Normosol 500 / 500
Other:
Number of approximated SMALL 1
amounts of urine
Number of approximated MODERATE 4
amounts of urine
Vital Signs
Temp Pulse Resp BP Pulse Ox
98.2 F 64 20 92/47 96
04/05/25 01:04 04/05/25 01:04 04/05/25 01:04 04/05/25 01:04 04/05/25 01:04
Lab Results
04/05/25 05:16
04/05/25 05:16
Calcium 7.4 mg/dl (8.4-10.2) L D 04/05/25 05:16
Magnesium 1.9 mg/dl (1.6-2.3) 04/05/25 05:16
Total Bilirubin 1.5 mg/dl (0.2-1.3) H 04/05/25 05:16
AST 38 U/L (14-36) H 04/05/25 05:16
ALT 28 U/L (0-35) 04/05/25 05:16
Alkaline Phosphatase 51 U/L (38-126) 04/05/25 05:16
Total Protein 5.8 g/dl (6.3-8.2) L 04/05/25 05:16
Albumin 3.2 g/dl (3.5-5.0) L 04/05/25 05:16
Physical Exam
-
Gen: NAD
Abd: soft, tender in epigastrium and RUQ, ND, non-peritoneal, incisions c/d/i - no erythema or drainage, ecchymosis present
Patient has a lam catheter: No
Patient has a central line: No
[2025-04-05] MEDS: TORADOL 10 MG IV (08:06)
[2025-04-05] MEDS: NSS IV (12:28)
[2025-04-05 13:58] VITALS: BP 111/52
[2025-04-05 14:50] VITALS: BP 108/56
--- NOTE | 2025-04-05 14:56 | W.DCSUMMARY ---
Addendum entered and electronically signed by Nina Rodgers MD 04/05/25 15:20:
Read, reviewed, and agree. See same day progress note for additional details. Time spent coordinating care, DC planning, review of DC plan of care with resident, transition of care, review of records in EMR, med rec, consults, notes, d/w
consultants, nursing, family, and CM = 31 minutes
Original Note:
Discharge Summary
Discharge Data
Date of Admission: 04/04/25
Date of Discharge: 04/05/25
-
Pending Results: No
Hospital Course
Discharging Physician : Dr. Rodgers
Disposition : Home
Primary care physician : JAQUELIN Wells
Principal Discharge diagnosis : Cholecystitis with cholelithiasis
Chronic Discharge diagnosis : Crohn's disease
Hospital Course : Patient is a 69-year-old woman with a history of Crohn's disease that was previously misdiagnosed as ulcerative colitis that presented to the emergency department with abdominal pain and back pain. She has a history of recurrent
episodes of partial bowel obstruction. She usually manages symptoms of her partial bowel obstruction at home conservatively. Her most recent symptoms began yesterday around 5:30 PM in the afternoon with nausea, back pain, and abdominal pain. She
usually self manages by inducing vomiting but she was unable to vomit this most recent time. She needs to induce vomiting sometimes twice a week, other times she may not have any issues for a whole week or so. Following the vomiting, she states
that her gut usually starts moving and symptoms resolve. She stated that her abdominal pain was concentrated under the right rib cage, radiating to the back and it is worse when she is lying flat. Her pain level reached an 8-9 out of 10. Her back
pain was particularly intense in the middle of her back and she reported that sometimes the pain radiated lower down her back as well. She also mentioned that she had a recent MRI and is being followed by Dr. Salas at [place] and Dr. Camejo at [facility]
for ongoing management of chron's disease. 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 Her abdominal pain is typically worsened with eating but there are no accompanying fevers
or rectal bleeding. CT scan of the abdomen was conducted down in the emergency department showed mildly distended gallbladder containing stones with some mild wall thickening. There was a large volume fecal like material/stool filling and mildly
distending the distal small bowel and J-pouch and there was possibility of accompanying wall thickening/active inflammation. The patient was admitted to [facility] for cholecystitis with sepsis.
Shortly after admission patient was taken to the to the operating room for cholecystectomy which the patient tolerated well. Following her procedure the patient's abdominal pain greatly improved and her appetite returned. Patient was started on a
low-fat diet which she tolerated well. The patient was having normal bowel movements and was able to pass flatus. The patient has a history of chronically high bilirubin on prior lab work. The patient's bilirubin remained elevated throughout her
hospital stay. The patient was given a prescription for CMP lab work to be done within 1 week following discharge and to be followed up with her primary care provider. The patient believes that she is ready to go home and be discharged.
The patient has reached maximal benefit from this hospital admission and is appropriate for discharge at the present time. There are no medical barriers that would impede the patient from being safely discharged. The patient should follow-up with
her primary care provider within 1 week following discharge. The patient should also follow-up with surgery within 2 to 4 weeks. The patient should keep her wound clean and instructions have been provided for her to do so.
Important imaging findings :
- Abdominal CT conducted on 04/04/2025:
Mildly distended gallbladder containing stones, cannot exclude some mild wall thickening. No findings to suggest biliary tract dilatation. Consider Abdominal Ultrasound for more complete evaluation as acute cholecystitis cannot be excluded.
Prior colectomy with J-pouch formation in this patient with history of Crohn's disease, evaluation overall markedly limited without oral contrast. Large volume fecal-like material/stool filling and mildly distending the distal small bowel and
J-pouch, cannot exclude some accompanying wall thickening/active inflammation. No small bowel obstruction or free air.- Abdominal ultrasound conducted on 04/04/2025:
Slightly prominent size gallbladder containing stones with mild wall thickening. Negative sonographic Busch's sign. If there is a clinical concern for acute cholecystitis, consider Nuclear Hepatobiliary scan.
No findings to suggest biliary tract dilatation.
Procedure findings :
- Laparoscopic cholecystectomy conducted on 04/04/2025:
Operative Findings: Tensely distended gallbladder with large stone impacted in the body. Infundibular region soft. Cystic duct isolated and controlled with clips, cystic artery and posterior cystic artery branch also controlled with clips.
Gallbladder removed off liver bed intact and extracted at epigastric port site which had to be enlarged to accommodate the approximately 2 inch diameter gallstone.
Discharge Plan
-
Patient Disposition: Home (Routine Discharge)
Discharge Diagnosis/Procedures: Laparoscopic cholecystectomy
Condition: Good
Diet: Regular and Low Fat
Additional Diets: For issues of bloating, crampy abdominal pain, or diarrhea follow a low-fat diet
Activity: No strenuous activity
Additional Activity: No heavy lifting (>20 lbs) for 3-4 weeks postoperatively
Driving Restrictions: No driving if too sore or taking narcotics
Bathing Restrictions: OK to Shower
Wound Care: Keep incisions clean and dry. Glue will flake off in 2 to 3 weeks. Stitches will dissolve. Use ice to the abdomen to reduce any bruising or swelling.
Activity Restrictions/Additional Instructions:
Call for fevers (>100.5), nausea or vomiting, worsening abdominal pain
Referrals:
Roland Buck MD [Active, Surgical] - in two to four weeks
Monie Cordoba CRNP [Family Provider, Family Practice] - in less than 1 week
Additional Discharge Medication Instructions: Patient should have a follow-up CMP within 1 week of discharge to be followed by PCP
Discharge Orders:
Discharge Patient (As Directed); Ordered 04/05/25
Ordered By: Sherrie Mccoy
Discharge Date and Time
Print Language: THAI
== END 2025-04-05 15:21 | disposition home or self-care (01) | DRG 854 ==
LOC: 4 WEST ACU 10:49
PROVIDERS: ADMITTING PHYSICIAN Internal Medicine; CONSULT PHYSICIAN Surgery; EMERGENCY PHYSICIAN Emergency Medicine; FAMILY PHYSICIAN Nurse Practitioner Family
PROC: 0FT44ZZ Resection of Gallbladder, Percutaneous Endoscopic Approach (ICD-10-PCS; 2025-04-04)
DX: A41.9 Sepsis, unspecified organism (principal); K50.90 Crohn's disease, unspecified, without complications; K80.00 Calculus of gallbladder with acute cholecystitis without obstruction; K66.0 Peritoneal adhesions (postprocedural) (postinfection); Z88.2 Allergy status to sulfonamides; Z88.6 Allergy status to analgesic agent; Z90.49 Acquired absence of other specified parts of digestive tract
CPT/HCPCS: 74177; 76705; 80053; 81003; 81015; 82607; 83690; 83735; 85025; 85027; 88304; 96361; 96374; 96375; 99285; Q9967